=== PATIENT | female | born 1980 | race Two or more races ===

== ENCOUNTER 2020-12-05 15:47 | Outpatient (REF) | payer MEDICARE, MEDICAID, SELFPAY ==
[2020-12-05 16:59] LABS: MANUAL DIFF FLAG NO
[2020-12-05 17:02] LABS: Basophils Percent Auto 0.3 % (0-2); Eosinophils Absolute Auto 0.1 X10*3/uL (0.0-0.4); Eosinophils Percent Auto 0.9 % (0-4); Hematocrit 37.4 % (37-47); Hemoglobin 11.8 g/dl (12.0-16.0); Imm Gran Abs Auto 0.02 X10*3/uL (0.00-0.03); Imm Gran Pct Auto 0.3 % (0.0-0.4); Lymphocytes Absolute Auto 2.9 X10*3/uL (1.2-4.9); Lymphocytes Percent Auto 37.6 % (20-40); Mean Corpuscular HGB Conc 31.6 g/dl (31.0-35.0); Mean Corpuscular Hemoglobin 26.2 pg (27.0-33.0); Mean Corpuscular Volume 83.1 fL (80-98); Mean Platelet Volume 9.7 fL (9.4-12.3); Monocytes Absolute Auto 0.6 X10*3/uL (0.1-1.2); Monocytes Percent Auto 8.1 % (2-11); Neutrophils Percent Auto 52.8 % (45-73); Platelet Count 389 X10*3/uL (160-400); White Blood Count 7.6 X10*3/uL (4.8-10.8)
[2020-12-05 17:25] LABS: Alanine Aminotransferase 14 U/L (0-31); Alkaline Phosphatase 69 U/L (39-117); Anion Gap 12 (12-20); Aspartate Amino Transferase 14 U/L (5-31); Bilirubin Total 0.2 mg/dL (0.0-1.0); Blood Urea Nitrogen 16 mg/dL (9-16); Calcium 9.6 mg/dL (8.4-10.2); Carbon Dioxide 26 mmol/L (22-29); Chloride 104 mmol/L (96-108); Estimated Glomerular Filt Rate > 60; Glucose Random 73 mg/dL (60-115); Potassium 4.2 mmol/L (3.3-5.1); Sodium 138 mmol/L (135-145); Total Protein 7.2 g/dL (6.5-8.0)
[2020-12-05 17:48] LABS: TSH reflex Free T4 0.64 uIU/mL (0.32-4.0)
[2020-12-09 13:27] LABS: Vitamin D 25-OH, D2 <4 ng/mL; Vitamin D 25-OH, D3 23 ng/mL; Vitamin D 25-OH, Total 23 ng/mL (30-100)
== END 2020-12-05 15:48 | disposition home or self-care (01) ==
LOC: HO.LAB 15:47
PROVIDERS: PCP Internal Medicine; Visit Provider Internal Medicine
DX: M79.672 Pain in left foot (principal); M79.671 Pain in right foot; M25.511 Pain in right shoulder; M19.90 Unspecified osteoarthritis, unspecified site
CPT/HCPCS: 36415; 80053; 82306; 84443; 85025

== ENCOUNTER 2020-12-06 13:37 | Outpatient (REF) | payer MEDICARE, MEDICAID, SELFPAY ==
--- NOTE | ~2020-12-06 | XR_ITS ---
EXAMINATION: XR FOOT, RIGHT CLINICAL INFORMATION: Pain. COMPARISON: None TECHNIQUE: AP, lateral, and oblique views of the right foot. FINDINGS: The bones and soft tissues are normal. No fracture. Alignment is anatomic. Boehler's angle is normal. There is no right ankle joint effusion. There are small posterior and plantar calcaneal spurs. Joint spaces are maintained. XR/XR foot RT min 3V IMPRESSION: 1. No fracture, dislocation or right ankle joint effusion is seen. 2. There are small calcaneal spurs. EXAMINATION: XR FOOT, LEFT CLINICAL INFORMATION: Pain. COMPARISON: None TECHNIQUE: AP, lateral, and oblique views of the left foot. FINDINGS: The bones and soft tissues are normal. No fracture. Alignment is anatomic. Boehler's angle is normal. There is no left ankle joint effusion. There are small posterior plantar calcaneal spurs. Joint spaces are maintained. IMPRESSION: 1. No fracture, dislocation or left ankle joint effusion is seen. 2. There are small calcaneal spurs.
--- NOTE | ~2020-12-06 | XR_ITS ---
EXAMINATION: XR FOOT, RIGHT CLINICAL INFORMATION: Pain. COMPARISON: None TECHNIQUE: AP, lateral, and oblique views of the right foot. FINDINGS: The bones and soft tissues are normal. No fracture. Alignment is anatomic. Boehler's angle is normal. There is no right ankle joint effusion. There are small posterior and plantar calcaneal spurs. Joint spaces are maintained. XR/XR foot LT min 3V IMPRESSION: 1. No fracture, dislocation or right ankle joint effusion is seen. 2. There are small calcaneal spurs. EXAMINATION: XR FOOT, LEFT CLINICAL INFORMATION: Pain. COMPARISON: None TECHNIQUE: AP, lateral, and oblique views of the left foot. FINDINGS: The bones and soft tissues are normal. No fracture. Alignment is anatomic. Boehler's angle is normal. There is no left ankle joint effusion. There are small posterior plantar calcaneal spurs. Joint spaces are maintained. IMPRESSION: 1. No fracture, dislocation or left ankle joint effusion is seen. 2. There are small calcaneal spurs.
== END 2020-12-06 13:38 | disposition home or self-care (01) ==
LOC: HO.XRAY 13:37
PROVIDERS: PCP Internal Medicine; Visit Provider Internal Medicine
DX: M79.671 Pain in right foot (principal); M79.672 Pain in left foot
CPT/HCPCS: 73630

== ENCOUNTER 2020-12-19 08:42 | Outpatient (REF) | payer MEDICARE, MEDICAID, SELFPAY ==
--- NOTE | ~2020-12-19 | XR_ITS ---
EXAMINATION: XR SHOULDER, RIGHT CLINICAL INFORMATION: Right shoulder pain COMPARISON: 08/05/2017 TECHNIQUE: Three views of the right shoulder. FINDINGS: The bones and soft tissues are normal. No fracture. Glenohumeral and acromioclavicular alignment is anatomic with normal joint space. No abnormal soft tissue calcifications. XR/XR shoulder RT min 2V IMPRESSION: Normal right shoulder.
== END 2020-12-19 08:43 | disposition home or self-care (01) ==
LOC: HO.HOSX 08:42
PROVIDERS: Visit Provider Orthopaedic Surgery
DX: M25.511 Pain in right shoulder (principal); M79.18 Myalgia, other site
CPT/HCPCS: 73030; 99212

== ENCOUNTER → 2021-01-10 14:34 | Outpatient (BNVA) | payer MEDICARE, MEDICAID, SELFPAY | PROVIDERS: PCP Internal Medicine; Visit Provider Nurse Practitioner Family | DX: M54.2 Cervicalgia (principal); M25.511 Pain in right shoulder; M79.18 Myalgia, other site | CPT/HCPCS: 99202 ==

== ENCOUNTER 2021-02-07 13:47 | Outpatient (REF) | payer MEDICARE, MEDICAID, SELFPAY ==
--- NOTE | ~2021-02-07 | XR_ITS ---
EXAMINATION: XR CERVICAL SPINE CLINICAL INFORMATION: Neck pain. COMPARISON: None TECHNIQUE: 5 views of the cervical spine were obtained. FINDINGS: There is mild straightening of cervical lordosis. The vertebral heights and alignment is normal. There is mild loss of C5-C6 disc identified. Moderate ventral spondylosis. Rest of the skeleton normal. The neural foramina patent. No visible acute fracture or dislocation seen. The craniovertebral junction and the C1-C2 alignment is normal. XR/XR cervical spine 3V IMPRESSION: There is mild straightening of cervical lordosis. There is loss of C5-C6 disc height with moderate ventral spondylosis. There is no acute fracture, dislocation or lytic process.
== END 2021-02-07 13:48 | disposition home or self-care (01) ==
LOC: HO.XRAY 13:47
PROVIDERS: PCP Internal Medicine; Visit Provider Nurse Practitioner Family
DX: M54.2 Cervicalgia (principal)
CPT/HCPCS: 72040

== ENCOUNTER 2021-05-22 13:28 | Outpatient (REF) | payer MEDICARE, MEDICAID, SELFPAY ==
[2021-05-23 11:06] LABS: CT PCR NOT DETECTED (Not Detect.); NG PCR NOT DETECTED (Not Detect.)
[2021-05-24 10:53] LABS: BV Int Neg Control Negative (Negative); BV Int Pos Control Positive (Positive)
[2021-05-29 15:01] LABS: HPV mRNA E6/E7 rflx Not Detected (Not Detected)
== END 2021-05-22 13:29 | disposition home or self-care (01) ==
LOC: HO.LAB 13:28
PROVIDERS: PCP Internal Medicine; Visit Provider Advanced Practice Midwife
DX: Z01.411 Encounter for gynecological examination (general) (routine) with abnormal findings (principal); Z11.3 Encounter for screening for infections with a predominantly sexual mode of transmission; R10.2 Pelvic and perineal pain; N92.0 Excessive and frequent menstruation with regular cycle
CPT/HCPCS: 87480; 87491; 87510; 87591; 87624; 87660; 88142; 99212

== ENCOUNTER 2021-06-01 13:16 | Outpatient (REF) | payer MEDICARE, MEDICAID, SELFPAY ==
[2021-06-01 14:05] LABS: Hematocrit 35.7 % (37.0-47.0); Hemoglobin 11.6 g/dl (12.0-16.0); Mean Corpuscular HGB Conc 32.5 g/dl (31.0-35.0); Mean Corpuscular Hemoglobin 26.5 pg (27.0-33.0); Mean Corpuscular Volume 81.5 fL (80.0-98.0); Mean Platelet Volume 9.3 fL (9.4-12.3); Platelet Count 365 X10*3/uL (160-400); Red Blood Count 4.38 X10*6/uL (4.20-5.50); Red Cell Distribution Width 15.4 % (11.0-16.0)
[2021-06-01 14:52] LABS: Thyroid Stimulating Hormone 0.55 uIU/mL (0.32-4.0)
== END 2021-06-01 13:17 | disposition home or self-care (01) ==
LOC: HO.LAB 13:16
PROVIDERS: PCP Internal Medicine; Visit Provider Advanced Practice Midwife
DX: N92.0 Excessive and frequent menstruation with regular cycle (principal); N92.1 Excessive and frequent menstruation with irregular cycle
CPT/HCPCS: 36415; 84443; 85027

== ENCOUNTER 2021-06-05 13:53 | Outpatient (REF) | payer MEDICARE, MEDICAID, SELFPAY ==
--- NOTE | ~2021-06-05 | US_ITS ---
EXAMINATION: US PELVIS CLINICAL INFORMATION: AUB. COMPARISON: None. TECHNIQUE: Ultrasound of the pelvis is performed using both transabdominal and transvaginal transducers along with Doppler. Transvaginal imaging is performed due to inadequate visualization transabdominally. FINDINGS: Uterus: The uterus is anteverted and measures 11.6 cm and length, 5.5 cm in AP and 7.0 cm in transverse dimension. cm. There are 2 hypoechoic lesions. The lesion in the right fundus measures 1.4 x 1.7 x 1.5 cm. Lesion in the left upper body of uterus measures 1.0 x 0.9 x 1.0 cm. The uterus is heterogeneous. There are small nabothian cysts seen in the cervix. The double wall endometrial thickness is 1.2 mm. Adnexa: Both ovaries are visualized. There is normal color flow to the adnexa. There is no ovarian torsion. There is no pelvic ascites or fluid collection. Right ovary measures 2.7 x 1.3 x 2.0 cm and volume 3.7 mL. Previously it measured 2.8 x 2.0 x 1.7 cm and volume 6.5 mL. Left ovary measures 2.2 x 1.6 x 1.3 cm and volume 2.4 mL. Previously it measured 2.1 x 3.0 x 2.5 cm and volume 7.7 mL. US/US pelvic and transvaginal IMPRESSION: Heterogeneous uterus with 2 uterine fibroids as described above. Small nabothian cysts in the cervix. Unremarkable ovaries.
== END 2021-06-05 13:54 | disposition home or self-care (01) ==
LOC: HO.US 13:53
PROVIDERS: PCP Internal Medicine; Visit Provider Advanced Practice Midwife
DX: N92.0 Excessive and frequent menstruation with regular cycle (principal); R10.2 Pelvic and perineal pain
CPT/HCPCS: 76830; 76856

== ENCOUNTER 2021-06-22 13:21 | Outpatient (REF) | payer MEDICARE, MEDICAID, SELFPAY ==
--- NOTE | ~2021-06-22 | MM_ITS ---
EXAMINATION: MM SCREENING DIGITAL BREAST TOMOSYNTHESIS, BILATERAL CLINICAL INFORMATION: Screening. Asymptomatic. No prior breast imaging. Age 41. No known family history breast cancer. The lifetime risk of breast cancer based on the Tyrer-Cuzick Model is 7%. COMPARISON: None (current study represents initial baseline exam). TECHNIQUE: Digital breast tomosynthesis is performed in both the craniocaudal and mediolateral oblique views along with computer-aided detection (CAD). Synthesized 2D images are generated from the tomosynthesis. FINDINGS: There are scattered areas of fibroglandular density (ACR BI-RADS breast composition Category b). There are no significant masses, abnormal calcifications, or other abnormalities. The axilla and skin contours are unremarkable. MM/MM tomosynthesis screening BI IMPRESSION: No mammographic evidence of malignancy. ASSESSMENT: BI-RADS 1: Negative RECOMMENDATION: Routine annual mammography screening. This patient's information was entered into a reminder system with a target due date for their next mammogram.
== END 2021-06-22 13:22 | disposition home or self-care (01) ==
LOC: HO.MAMMO 13:21
PROVIDERS: Visit Provider Internal Medicine
DX: Z12.31 Encounter for screening mammogram for malignant neoplasm of breast (principal)
CPT/HCPCS: 77063; 77067

== ENCOUNTER 2021-06-26 13:02 | Outpatient (REF) | payer MEDICARE, MEDICAID, SELFPAY | END 2021-06-26 13:03 | disposition home or self-care (01) | LOC: HO.LAB 13:02 | PROVIDERS: PCP Internal Medicine; Visit Provider Advanced Practice Midwife | DX: N93.9 Abnormal uterine and vaginal bleeding, unspecified (principal); N92.0 Excessive and frequent menstruation with regular cycle | CPT/HCPCS: 58100; 88305 ==

== ENCOUNTER 2021-12-04 10:26 | Outpatient (REF) | payer MEDICARE, MEDICAID, SELFPAY ==
[2021-12-04 10:47] LABS: MANUAL DIFF FLAG NO
[2021-12-04 12:05] LABS: Eosinophils Absolute Auto 0.1 X10*3/uL (0.0-0.4); Eosinophils Percent Auto 0.9 % (0-4); Hematocrit 37.8 % (37.0-47.0); Hemoglobin 11.8 g/dl (12.0-16.0); Imm Gran Abs Auto 0.02 X10*3/uL (0.00-0.03); Imm Gran Pct Auto 0.4 % (0.0-0.4); Lymphocytes Absolute Auto 1.9 X10*3/uL (1.2-4.9); Lymphocytes Percent Auto 33.9 % (20-40); Mean Corpuscular HGB Conc 31.2 g/dl (31.0-35.0); Mean Corpuscular Volume 83.3 fL (80.0-98.0); Mean Platelet Volume 9.5 fL (9.4-12.3); Monocytes Absolute Auto 0.4 X10*3/uL (0.1-1.2); Monocytes Percent Auto 7.8 % (2-11); Neutrophils Absolute Auto 3.2 x10*3/uL (2.0-8.3); Platelet Count 392 X10*3/uL (160-400); Red Blood Count 4.54 X10*6/uL (4.20-5.50); Red Cell Distribution Width 15.5 % (11.0-16.0); White Blood Count 5.7 X10*3/uL (4.8-10.8)
[2021-12-04 12:30] LABS: Alanine Aminotransferase 10 U/L (0-31); Albumin Level 3.9 g/dL (3.5-5.0); Alkaline Phosphatase 69 U/L (39-117); Anion Gap 13 (12-20); Aspartate Amino Transferase 13 U/L (5-31); Bilirubin Total 0.5 mg/dL (0.0-1.0); Blood Urea Nitrogen 14 mg/dL (9-16); Calcium 9.1 mg/dL (8.4-10.2); Carbon Dioxide 26 mmol/L (22-29); Chloride 106 mmol/L (96-108); Cholesterol 139 mg/dL; Estimated Glomerular Filt Rate > 60; Glucose Fasting 85 mg/dL (60-99); HDL Cholesterol 44 mg/dL; LDL Cholesterol Calculated 81 mg/dl; Potassium 4.6 mmol/L (3.3-5.1); Sodium 140 mmol/L (135-145); Total Protein 7.1 g/dL (6.5-8.0); Triglycerides 71 mg/dL
[2021-12-04 12:50] LABS: TSH reflex Free T4 0.71 uIU/mL (0.32-4.0)
[2021-12-04 12:53] LABS: Vitamin B12 437 pg/mL (200-900)
[2021-12-07 17:56] LABS: Vitamin D 25-OH, D2 <4 ng/mL; Vitamin D 25-OH, D3 22 ng/mL; Vitamin D 25-OH, Total 22 ng/mL (30-100)
== END 2021-12-04 10:27 | disposition home or self-care (01) ==
LOC: HO.LAB 10:26
PROVIDERS: PCP Internal Medicine; Visit Provider Internal Medicine
DX: F33.9 Major depressive disorder, recurrent, unspecified (principal); M19.90 Unspecified osteoarthritis, unspecified site; M79.642 Pain in left hand; R53.83 Other fatigue; E55.9 Vitamin D deficiency, unspecified; E66.9 Obesity, unspecified; M54.9 Dorsalgia, unspecified
CPT/HCPCS: 36415; 80053; 80061; 82306; 82607; 84443; 85025

== ENCOUNTER 2022-05-08 13:43 | Outpatient (REF) | payer MEDICARE, MEDICAID, SELFPAY ==
[2022-05-08 14:01] LABS: MANUAL DIFF FLAG NO
[2022-05-08 14:38] LABS: Basophils Percent Auto 0.4 % (0-2); Eosinophils Absolute Auto 0.1 X10*3/uL (0.0-0.4); Eosinophils Percent Auto 1.4 % (0-4); Hemoglobin 11.3 g/dl (12.0-16.0); Imm Gran Abs Auto 0.01 X10*3/uL (0.00-0.03); Imm Gran Pct Auto 0.2 % (0.0-0.4); Lymphocytes Absolute Auto 1.8 X10*3/uL (1.2-4.9); Lymphocytes Percent Auto 35.7 % (20-40); Mean Corpuscular HGB Conc 33.2 g/dl (31.0-35.0); Mean Corpuscular Hemoglobin 27.6 pg (27.0-33.0); Mean Corpuscular Volume 83.1 fL (80.0-98.0); Mean Platelet Volume 9.2 fL (9.4-12.3); Monocytes Absolute Auto 0.3 X10*3/uL (0.1-1.2); Monocytes Percent Auto 6.9 % (2-11); Neutrophils Absolute Auto 2.8 x10*3/uL (2.0-8.3); Neutrophils Percent Auto 55.4 % (45-73); Platelet Count 354 X10*3/uL (160-400); Red Blood Count 4.09 X10*6/uL (4.20-5.50); Red Cell Distribution Width 15.9 % (11.0-16.0)
[2022-05-08 15:09] LABS: Alanine Aminotransferase 10 U/L (0-31); Alkaline Phosphatase 74 U/L (39-117); Anion Gap 14 (12-20); Aspartate Amino Transferase 15 U/L (5-31); Bilirubin Total < 0.2 mg/dL (0.0-1.0); Blood Urea Nitrogen 16 mg/dL (9-16); Calcium 9.7 mg/dL (8.4-10.2); Carbon Dioxide 27 mmol/L (22-29); Chloride 105 mmol/L (96-108); Estimated Glomerular Filt Rate > 60; Glucose Random 81 mg/dL (60-115); Potassium 4.7 mmol/L (3.3-5.1); Sodium 141 mmol/L (135-145)
[2022-05-08 15:25] LABS: TSH reflex Free T4 0.53 uIU/mL (0.32-4.0)
[2022-05-09 18:02] LABS: Thyroglobulin Antibodies <1 IU/mL (< or = 1)
== END 2022-05-08 13:44 | disposition home or self-care (01) ==
LOC: HO.LAB 13:43
PROVIDERS: PCP Internal Medicine; Visit Provider Internal Medicine
DX: E06.9 Thyroiditis, unspecified (principal); R13.10 Dysphagia, unspecified
CPT/HCPCS: 36415; 80053; 84443; 85025; 86800

== ENCOUNTER 2022-05-28 14:15 | Outpatient (REF) | payer MEDICARE, MEDICAID, SELFPAY ==
[2022-05-29 13:58] LABS: BV Int Neg Control Negative (Negative); BV Int Pos Control Positive (Positive)
[2022-05-29 15:15] LABS: CT PCR NOT DETECTED (Not Detect.); NG PCR NOT DETECTED (Not Detect.)
== END 2022-05-28 14:16 | disposition home or self-care (01) ==
LOC: HO.LNP 14:15
PROVIDERS: Visit Provider Advanced Practice Midwife
DX: Z11.3 Encounter for screening for infections with a predominantly sexual mode of transmission (principal); Z20.2 Contact with and (suspected) exposure to infections with a predominantly sexual mode of transmission
CPT/HCPCS: 87480; 87491; 87510; 87591; 87660

== ENCOUNTER → 2022-07-12 15:29 | Outpatient (BNVA) | payer MEDICARE, MEDICAID, SELFPAY | PROVIDERS: PCP Internal Medicine; Visit Provider Internal Medicine | DX: R13.10 Dysphagia, unspecified (principal); R10.9 Unspecified abdominal pain | CPT/HCPCS: 99202 ==

== ENCOUNTER 2022-08-06 13:17 | Outpatient (REF) | payer MEDICARE, MEDICAID, SELFPAY ==
--- NOTE | ~2022-08-06 | US_ITS ---
EXAMINATION: ULTRASOUND OF THE PELVIS CLINICAL INFORMATION: Pelvic and perineal pain. History of ovarian cysts.. COMPARISON: None. TECHNIQUE: Transabdominal and transvaginal pelvic ultrasound. A transvaginal study was performed in addition to the transabdominal study which did not yield an adequate examination of the uterus and ovaries due to superimposed distended gas-filled loops of bowel. FINDINGS: The uterus is normal in size and appearance, measuring 9.8 x 5.1 x 6.4 cm longitudinally, anteroposteriorly and transversely. The endometrial stripe thickness is irregular, measuring 0.8 cm in thickness. Within the endometrial canal there is suggestion of a focal polyp near the fundus. This measures 0.7 x 1.4 x 0.5 cm. There is a hyperechoic lesion at the uterine fundus, likely a fibroid. This measures 1.5 x 1.3 x 1.4 cm, similar to prior. Nabothian cysts noted at the cervix. The ovaries bilaterally are visualized, with the right ovary measuring 5 x 4.5 x 4.1 cm and the left ovary measuring 2.1 x 1.5 x 1.7 cm. There is a simple appearing cyst identified in the right ovary measuring 4.5 x 3.8 x 4.4 cm. Small left ovarian follicles noted. No adnexal mass or free fluid collection seen. US/US pelvic and transvaginal IMPRESSION: 1. Suggestion of a endometrial polyp near the fundus. This measures 0.7 x 1.4 x 0.5 cm. Further evaluation recommended. 2. Redemonstration of a fundal uterine fibroid. 3. Right ovarian cyst measuring up to 4.5 cm. This is likely physiologic. No specific follow-up imaging recommended.
== END 2022-08-06 13:18 | disposition home or self-care (01) ==
LOC: HO.US 13:17
PROVIDERS: PCP Internal Medicine; Visit Provider Advanced Practice Midwife
DX: R10.2 Pelvic and perineal pain (principal)
CPT/HCPCS: 76830; 76856

== ENCOUNTER 2022-08-08 14:58 | Outpatient (REF) | payer MEDICARE, MEDICAID, SELFPAY | END 2022-08-08 14:59 | disposition home or self-care (01) | LOC: HO.US 14:58 | PROVIDERS: PCP Internal Medicine; Visit Provider Internal Medicine | DX: Z13.89 Encounter for screening for other disorder (principal) ==

== ENCOUNTER → 2022-08-26 10:02 | Outpatient (BNVA) | payer MEDICARE, MEDICAID, SELFPAY | PROVIDERS: PCP Internal Medicine; Visit Provider Advanced Practice Midwife | DX: Z71.2 Person consulting for explanation of examination or test findings (principal); N84.0 Polyp of corpus uteri; N83.201 Unspecified ovarian cyst, right side | CPT/HCPCS: 99212 ==

== ENCOUNTER 2022-08-27 13:33 | Outpatient (REF) | payer MEDICARE, MEDICAID, SELFPAY | END 2022-08-27 13:34 | disposition home or self-care (01) | LOC: HO.US 13:33 | PROVIDERS: Visit Provider Internal Medicine | DX: Z13.89 Encounter for screening for other disorder (principal) ==

== ENCOUNTER 2022-08-28 09:27 | Outpatient (REF) | payer MEDICARE, MEDICAID, SELFPAY ==
--- NOTE | ~2022-08-28 | US_ITS ---
EXAMINATION: US ABDOMEN COMPLETE CLINICAL INFORMATION: Unspecified abdominal pain. COMPARISON: None TECHNIQUE: Real-time imaging of the abdominal viscera. FINDINGS: PANCREAS: The visualized portions of the pancreas are unremarkable but a large portion of the gland is obscured by bowel gas. ABDOMINAL AORTA: The proximal, mid, and distal segments are normal in caliber. INFERIOR VENA CAVA: Visualized portions are normal. LIVER: The liver is normal in size. The liver contour is normal. There is diffuse increased liver parenchymal echogenicity, consistent with hepatic steatosis. No focal hepatic lesion. There is no intrahepatic biliary duct dilatation seen. GALLBLADDER: The gallbladder is physiologically distended without evidence of stones, sludge, polyps, wall thickening or pericholecystic fluid. COMMON BILE DUCT: Normal in caliber measuring 0.2 cm in diameter. RIGHT KIDNEY: No hydronephrosis. No renal calculi or focal parenchymal lesions. The kidney measures 8.4 cm in maximum dimension. LEFT KIDNEY: No hydronephrosis. No renal calculi or focal parenchymal lesions. The kidney measures 10.0 cm in maximum dimension. SPLEEN: Normal. The spleen measures 8.9 cm in maximum dimension. FREE FLUID: None. US/US abdomen complete IMPRESSION: Hepatic steatosis.
--- NOTE | ~2022-08-28 | FL_ITS ---
EXAMINATION: FL BARIUM SWALLOW CLINICAL INFORMATION: Dysphagia COMPARISON: None TECHNIQUE: Barium swallow examination is performed using fluoroscopic evaluation in addition to multiple fluoroscopic spot views. The patient is imaged both upright and prone and using both thick and thin sulfate along with effervescent granules. Exam is limited as the patient was nauseous and vomiting. Tablet was not administered. Fluoroscopy time: 0.5 minutes DAP: 3 Gycm2 Images: 27 FINDINGS: The swallowing mechanism is normal. No aspiration or penetration. Esophageal motility is normal. No hernia. No reflux. No mass or stricture. FL/FL barium swallow IMPRESSION: Limited but unremarkable exam. Patient was nauseous and vomited. Barium tablet not administered.
== END 2022-08-28 09:28 | disposition home or self-care (01) ==
LOC: HO.XRAY 09:27
PROVIDERS: PCP Internal Medicine; Visit Provider Internal Medicine
DX: R13.10 Dysphagia, unspecified (principal); R10.9 Unspecified abdominal pain
CPT/HCPCS: 74220; 76700

== ENCOUNTER 2022-09-19 06:33 | Day surgery (SDC) | payer MEDICARE, MEDICAID, SELFPAY ==
[2022-09-16 11:49] VITALS: BMI 36.3
--- NOTE | 2022-09-18 13:07 | HO.ANESPROP2 ---
Documented by User: Amparo Smith NP 09/18/22 13:08 HPI - Anesthesia Eval Consult details Narrative: 42yo F for Upper Endoscopy PMFSH Active Problems Active Problems: All Active Problems (Updated 07/12/22 @ 15:42 by Leigh Blakely MD) Abdominal pain (Acute) Painful swallowing (Acute) Difficulty swallowing (Acute) Thyroiditis (Acute) Obesity due to excess calories (Acute) Anemia (Acute) Nasal congestion (Acute) Chronic back pain (Acute) Tired (Acute) Arthrosis (Acute) Major depression, recurrent (Acute) Hand pain, left (Acute) Upper respiratory tract infection (Acute) Abnormal uterine bleeding (AUB) (Acute) Pelvic pain in female (Acute) Heavy menstrual bleeding (Acute) Encounter for routine gynecological examination (Acute) Encounter for general adult medical examination with abnormal findings (Acute) Breast screening (Acute) Lump on neck (Acute) Past Medical History Medical History Arthrosis Cervicalgia Foot pain, bilateral History of ovarian cyst Major depression, recurrent Myofascial pain Obesity due to excess calories Paresthesia of hand, bilateral Plantar wart of right foot Shoulder pain, right Viral syndrome Vitamin D deficiency Family History Family History Father HTN (hypertension) Depression Mother Depression Maternal Grandmother No problems noted. Maternal Grandfather No problems noted. Paternal Grandfather No problems noted. Paternal Grandmother No problems noted. Sister No problems noted. Sister No problems noted. Daughter No problems noted. Daughter No problems noted. Daughter No problems noted. Other Mental health disorder Surgical History Surgical History History of esophagogastroduodenoscopy (EGD) History of loop electrical excision procedure (LEEP) History of tubal ligation History of wisdom tooth extraction Social History Social History Housing: Apartment Alcohol intake: never Patient Tobacco Use Status: Never used Tobacco e-Cigarette/Vaping Use: Never Used Second Hand Smoke Exposure: No Are you DNR?: No Advance Directives: No Advance Directives Information Provided: Yes Patient : No Current occupational status: disabled Current occupation: right handed/ Cognitive needs: No Hearing needs: No Vision needs: Yes Meds Allergies Allergy/AdvReac Type Severity Reaction Status Date / Time No Known Allergies Allergy Verified 08/26/22 10:05 Home Medications Medication Instructions Recorded Confirmed Last Taken Type albuterol sulfate 90 mcg/actuation inhalation 09/19/22 09/11/22 History aerosol inhaler citalopram 10 mg tablet 1 tab PO DAILY 09/19/22 09/19/22 09/18/22 History fluticasone propionate 50 spray intranasal 09/19/22 09/11/22 History mcg/actuation nasal spray,suspension pantoprazole 40 mg tablet,delayed 1 tab PO DAILY 09/19/22 09/19/22 09/11/22 History release Exam Exam Date and Time: September 18, 2022 1307 Height,Weight and Vital Signs: Height 4 ft 9 in Weight 76.204 kg Pertinent Lab Results Pertinent Lab Results: Laboratory Tests 05/08/22 05/08/22 14:00 14:00 WBC 5.0 Hgb 11.3 L Hct 34.0 L Plt Count 354 Sodium 141 Potassium 4.7 Chloride 105 Carbon Dioxide 27 BUN 16 Creatinine 0.85 Assessment and Plan Assessment Anesthesia Assessment: Chart Reviewed Documented by User: Hannah Mcarthur MD 09/19/22 07:16 [facility] Past Medical History Medical History Arthrosis Cervicalgia Foot pain, bilateral History of ovarian cyst Major depression, recurrent Myofascial pain Obesity due to excess calories Paresthesia of hand, bilateral Plantar wart of right foot Shoulder pain, right Viral syndrome Vitamin D deficiency Family History Family History Father HTN (hypertension) Depression Mother Depression Maternal Grandmother No problems noted. Maternal Grandfather No problems noted. Paternal Grandfather No problems noted. Paternal Grandmother No problems noted. Sister No problems noted. Sister No problems noted. Daughter No problems noted. Daughter No problems noted. Daughter No problems noted. Other Mental health disorder Family history of problems with anesthesia: No Surgical History Surgical History History of esophagogastroduodenoscopy (EGD) History of loop electrical excision procedure (LEEP) History of tubal ligation History of wisdom tooth extraction History of Problems with Anesthesia: No Social History Social History Housing: Apartment Alcohol intake: never Patient Tobacco Use Status: Never used Tobacco e-Cigarette/Vaping Use: Never Used Second Hand Smoke Exposure: No Are you DNR?: No Advance Directives: No Advance Directives Information Provided: Yes Patient : No Current occupational status: disabled Current occupation: right handed/ Cognitive needs: No Hearing needs: No Vision needs: Yes Meds Allergies Allergy/AdvReac Type Severity Reaction Status Date / Time No Known Allergies Allergy Verified 08/26/22 10:05 Home Medications Medication Instructions Recorded Confirmed Last Taken Type albuterol sulfate 90 mcg/actuation inhalation 09/19/22 09/11/22 History aerosol inhaler citalopram 10 mg tablet 1 tab PO DAILY 09/19/22 09/19/22 09/18/22 History fluticasone propionate 50 spray intranasal 09/19/22 09/11/22 History mcg/actuation nasal spray,suspension pantoprazole 40 mg tablet,delayed 1 tab PO DAILY 09/19/22 09/19/22 09/11/22 History release Exam Airway Mallampati Class: II TM Dist: >3cm Neck ROM: Full Heart: RRR Lungs: CTA Assessment and Plan Final Anesthetic Review Family History of Problems with Anesthesia: No History of Problems with Anesthesia: No NPO: Yes ASA Class: II Final Preanesthetic Review: No Changes in Pt Med Stat, Meds/Allgs Chart Reviewed, Consent Obtained/Reviewed and Anes Risks/Benef Reviewed Patient Risk: Low Procedure Risk: Low Anesthetic Plan Anesthetic Plan: MAC: Disposition: Standard PACU
[2022-09-19] VITALS (7 sets, daily range): BP systolic 115–143; BP diastolic 52–84; PULSE 98–130; RESP 16–18; TEMP 36.1–36.8; O2SAT 96–100
[2022-09-19] MEDS: Lactated Ringers 1,000 ML 100 ML IVCONT (06:56)
--- NOTE | 2022-09-19 07:35 | MHC.SHP ---
Pre-Procedural Eval Section A Date of Service: 09/19/22 Section B Chief Complaint: abdominal pain,nausea,vomiting, Details of Present Illness: PMH: Arthrosis Cervicalgia Foot pain, bilateral History of ovarian cyst Major depression, recurrent Myofascial pain Obesity due to excess calories Paresthesia of hand, bilateral Plantar wart of right foot Shoulder pain, right Viral syndrome Vitamin D deficiency Surgical History History of esophagogastroduodenoscopy (EGD) History of loop electrical excision procedure (LEEP) History of tubal ligation History of wisdom tooth extraction Relevant Social History: None Present Medications: see Short Stay Collaborative assessment Allergies: Allergies Allergy/AdvReac Type Severity Reaction Status Date / Time No Known Allergies Allergy Verified 08/26/22 10:05 Review of Systems Review of Systems Comment: Ten point ROS negative except as above Exam Exam Comment: Gen appear: No acute distress HEENT: no icterus Chest: No overt resp distress Abd: soft, nontender, nondistended Psych: Stable affect, answering questions appropriately Neuro: A/Ox3 noted to move all extremities spontaneously Ext: no peripheral edema Plan Diagnosis/Plan: Unchanged I have reviewed the history and physical and performed a pertinent physical examination on my patient. No changes have occurred unless specified. Time Spent With Patient Time: Total time managing care of this patient today ____ minutes.
--- NOTE | 2022-09-19 07:36 | P.OP_ITS ---
Operative Note Operative Note Date of Service: 09/19/22 Narrative: Procedure: Esophagogastroduodenoscopy Endoscopist: Leigh Blakely MD Indication: Abd pain Anesthesia Provider: Dr Hannah Schumacher Anesthesia Type: MAC ?? EGD Procedure:?? The procedure, indications, preparation and potential complications were reviewed with the patient, who indicated understanding and gave written informed consent to proceed. A physical exam was performed. The endoscope was introduced through the mouth, and advanced to the second part of duodenum. The mucosa was carefully examined on slow withdrawal of the endoscope. The patient tolerated the procedure well. There were no immediate complications.? ? EGD Findings:? * Esophagus:? A few erosions measuring 5 mm but not crossing over the tops of mucosal folds were noted in the lower esophagus. The Z line was at 30 cm. Diaphragmatic hiatus was at 32 cm. Llower esophagus cold forceps biopsies were obtained. * Stomach:? Normal mucosa was noted in the stomach. Retroflexion of the cardia confirmed size and morphology of the hiatal hernia as Hill grade II. Random gastric biopsies were taken to rule out H Pylori infection. * Duodenum:? Erythema and erosions were noted in the duodenal bulb. Normal mucosa was noted in the remaining examined duodenum. Biopsies were taken from duodenal bulb and second portion of the duodenum to rule out celiac sprue. ? EGD Impressions:? * Grade B esophagitis (biopsy) * Hiatal hernia * Normal stomach (biopsy) * Bulbar duodenitis (biopsy) ?? Recommendations:?? * Follow biopsy results. Our office will call or send a letter with results within 7-10 days. * Resume PPI therapy. * If H pylori +, patient will be prescribed eradication therapy followed by test of cure. * Avoid NSAIDs. Above has been reviewed with the patient. Relevant educational hand outs were provided at discharge. ?
[2022-09-19] MEDS: Racepinephrine HCL 0.5 ML VIAL.NEB INHALE (08:32)
--- NOTE | 2022-09-19 13:30 | HO.POSTANES ---
Post Anesthesia Evaluation Post Anesthesia Evaluation Vital Signs: Vital Signs Temp Pulse Resp BP Pulse Ox O2 Del Method O2 Flow Rate 09/19/22 08:52 97.7 F 103 H 17 117/75 98 Room Air 09/19/22 08:37 97.7 F 101 H 16 129/84 98 Room Air 09/19/22 08:35 104 H 18 09/19/22 08:22 113 H 17 115/77 100 Nasal Cannula with ETCO2 2 09/19/22 08:12 130 H 16 143/70 H 100 Nasal Cannula with ETCO2 2 09/19/22 08:07 97.0 F 118 H 16 126/52 L 96 Simple Mask 6 09/19/22 06:35 98.3 F 98 18 127/71 99 Room Air Anesthesia: Monitored Mental Status: Awake (J) Pain Control: Satisfactory Nausea/Vomiting: None Hydration: Adequate Anesthesia-Related Issues: No Anes. Related Issues
== END 2022-09-19 09:26 | disposition home or self-care (01) ==
PROVIDERS: PCP Internal Medicine; Visit Provider Internal Medicine
PROC: 0DJ08ZZ Inspection of Upper Intestinal Tract, Via Natural or Artificial Opening Endoscopic (ICD-10-PCS; CPT 43235; principal; 2022-09-19 07:30)
DX: R10.9 Unspecified abdominal pain (principal); R11.0 Nausea; K20.80 Other esophagitis without bleeding; K29.80 Duodenitis without bleeding; K44.9 Diaphragmatic hernia without obstruction or gangrene; E55.9 Vitamin D deficiency, unspecified; M79.18 Myalgia, other site; B34.9 Viral infection, unspecified; E66.01 Morbid (severe) obesity due to excess calories; Z68.36 Body mass index [BMI] 36.0-36.9, adult; F33.9 Major depressive disorder, recurrent, unspecified; Z79.51 Long term (current) use of inhaled steroids; Z79.899 Other long term (current) drug therapy; Z98.51 Tubal ligation status
CPT/HCPCS: 43239; 88305; 88342

== ENCOUNTER 2022-09-27 14:06 | Outpatient (REF) | payer MEDICARE, MEDICAID, SELFPAY ==
[2022-09-27 16:41] LABS: Alanine Aminotransferase 11 U/L (0-31); Albumin Level 3.6 g/dL (3.5-5.0); Alkaline Phosphatase 70 U/L (39-117); Aspartate Amino Transferase 15 U/L (5-31); Bilirubin Direct < 0.2 mg/dL (0.0-0.5); Bilirubin Total 0.2 mg/dL (0.0-1.0); Total Protein 6.5 g/dL (6.5-8.0)
== END 2022-09-27 14:07 | disposition home or self-care (01) ==
LOC: HO.LAB 14:06
PROVIDERS: PCP Internal Medicine; Visit Provider Internal Medicine
DX: K80.50 Calculus of bile duct without cholangitis or cholecystitis without obstruction (principal); K20.90 Esophagitis, unspecified without bleeding; R13.10 Dysphagia, unspecified; R10.9 Unspecified abdominal pain
CPT/HCPCS: 36415; 80076; 99212

== ENCOUNTER → 2022-10-08 15:05 | Outpatient (BNVA) | payer MEDICARE, MEDICAID, SELFPAY | PROVIDERS: PCP Internal Medicine; Visit Provider Obstetrics & Gynecology | DX: N93.9 Abnormal uterine and vaginal bleeding, unspecified (principal) | CPT/HCPCS: 99212 ==

== ENCOUNTER 2022-11-29 07:34 | Day surgery (SDC) | payer MEDICARE, MEDICAID, SELFPAY ==
[2022-10-29 13:46] VITALS: BMI 34.9
--- NOTE | 2022-10-31 09:51 | HO.ANESPROP2 ---
Documented by User: Amparo Smith NP 11/07/22 14:25 HPI - Anesthesia Eval Consult details Narrative: 42yo F for D&C Hysteroscopy , possible polypectomy/ myomectomy, 11/29/22 s/p EGD 09/2022 with [facility] PMFSH Active Problems Active Problems: All Active Problems (Updated 10/11/22 @ 14:59 by Pavan Glass MD) Muscle spasm (Acute) Esophagitis determined by endoscopy (Acute) Biliary colic (Acute) Abdominal pain (Acute) Painful swallowing (Acute) Difficulty swallowing (Acute) Thyroiditis (Acute) Obesity due to excess calories (Acute) Anemia (Acute) Nasal congestion (Acute) Chronic back pain (Acute) Tired (Acute) Arthrosis (Acute) Major depression, recurrent (Acute) Hand pain, left (Acute) Upper respiratory tract infection (Acute) Abnormal uterine bleeding (AUB) (Acute) Pelvic pain in female (Acute) Heavy menstrual bleeding (Acute) Encounter for routine gynecological examination (Acute) Encounter for general adult medical examination with abnormal findings (Acute) Breast screening (Acute) Lump on neck (Acute) Past Medical History Medical History Arthrosis Asthma Back pain Cervicalgia Foot pain, bilateral GERD (gastroesophageal reflux disease) History of ovarian cyst Major depression, recurrent Migraine Myofascial pain Obesity due to excess calories Paresthesia of hand, bilateral Plantar wart of right foot Shoulder pain, right Viral syndrome Vitamin D deficiency Family History Family History Father HTN (hypertension) Depression Mother Depression Maternal Grandmother No problems noted. Maternal Grandfather No problems noted. Paternal Grandfather No problems noted. Paternal Grandmother No problems noted. Sister No problems noted. Sister No problems noted. Daughter No problems noted. Daughter No problems noted. Daughter No problems noted. Other Mental health disorder Family history of problems with anesthesia: No Surgical History Surgical History History of esophagogastroduodenoscopy (EGD) History of loop electrical excision procedure (LEEP) History of tubal ligation History of wisdom tooth extraction History of Problems with Anesthesia: No Social History Social History Housing: Apartment Alcohol intake: never Patient Tobacco Use Status: Never used Tobacco e-Cigarette/Vaping Use: Never Used Second Hand Smoke Exposure: No Use of substances other than those prescribed or required for medical reasons: No Are you DNR?: No Advance Directives: No Advance Directives Information Provided: Yes Advance Directives on File: No Recently lost weight without trying: No Nutrition Risks: No Nutritional Risk Patient : No Current occupational status: disabled Current occupation: right handed/ Cognitive needs: No Hearing needs: No Vision needs: Yes Meds Allergies Allergy/AdvReac Type Severity Reaction Status Date / Time No Known Allergies Allergy Verified 11/29/22 07:39 Home Medications Medication Instructions Recorded Confirmed Last Taken Type albuterol sulfate 90 mcg/actuation 1 puff inhalation Q4-6H PRN 09/19/22 11/29/22 09/11/22 History aerosol inhaler Shortness Of Breath Or Wheezing citalopram 10 mg tablet (Celexa) 1 tab PO DAILY 09/19/22 11/29/22 09/18/22 History fluticasone propionate 50 1 spray intranasal DAILY 09/19/22 11/29/22 09/11/22 History mcg/actuation nasal spray,suspension (Flonase Allergy Relief) acetaminophen 500 mg oral powder 1,000 mg PO Q6H PRN Pain 10/11/22 11/29/22 Unknown History packet (Tylenol Extra Strength) Exam Exam Date and Time: October 31, 2022 0951 Height,Weight and Vital Signs: Height 4 ft 10 in Weight 75.977 kg Assessment and Plan Assessment Anesthesia Assessment: Chart Reviewed Final Anesthetic Review Family History of Problems with Anesthesia: No History of Problems with Anesthesia: No Documented by User: Farooq Campuzano MD 11/29/22 08:41 PMFSH Past Medical History Medical History Arthrosis Asthma Back pain Cervicalgia Foot pain, bilateral GERD (gastroesophageal reflux disease) History of ovarian cyst Major depression, recurrent Migraine Myofascial pain Obesity due to excess calories Paresthesia of hand, bilateral Plantar wart of right foot Shoulder pain, right Viral syndrome Vitamin D deficiency Patient : No Family History Family History Father HTN (hypertension) Depression Mother Depression Maternal Grandmother No problems noted. Maternal Grandfather No problems noted. Paternal Grandfather No problems noted. Paternal Grandmother No problems noted. Sister No problems noted. Sister No problems noted. Daughter No problems noted. Daughter No problems noted. Daughter No problems noted. Other Mental health disorder Surgical History Surgical History History of esophagogastroduodenoscopy (EGD) History of loop electrical excision procedure (LEEP) History of tubal ligation History of wisdom tooth extraction Social History Social History Housing: Apartment Alcohol intake: never Patient Tobacco Use Status: Never used Tobacco e-Cigarette/Vaping Use: Never Used Second Hand Smoke Exposure: No Use of substances other than those prescribed or required for medical reasons: No Are you DNR?: No Advance Directives: No Advance Directives Information Provided: Yes Advance Directives on File: No Recently lost weight without trying: No Nutrition Risks: No Nutritional Risk Patient : No Current occupational status: disabled Current occupation: right handed/ Cognitive needs: No Hearing needs: No Vision needs: Yes Meds Allergies Allergy/AdvReac Type Severity Reaction Status Date / Time No Known Allergies Allergy Verified 11/29/22 07:39 Home Medications Medication Instructions Recorded Confirmed Last Taken Type albuterol sulfate 90 mcg/actuation 1 puff inhalation Q4-6H PRN 09/19/22 11/29/22 09/11/22 History aerosol inhaler Shortness Of Breath Or Wheezing citalopram 10 mg tablet (Celexa) 1 tab PO DAILY 09/19/22 11/29/22 09/18/22 History fluticasone propionate 50 1 spray intranasal DAILY 09/19/22 11/29/22 09/11/22 History mcg/actuation nasal spray,suspension (Flonase Allergy Relief) acetaminophen 500 mg oral powder 1,000 mg PO Q6H PRN Pain 10/11/22 11/29/22 Unknown History packet (Tylenol Extra Strength) Exam Airway Mallampati Class: II TM Dist: >3cm Neck ROM: Full Heart: ok Lungs: ok Assessment and Plan Assessment Anesthesia Assessment: Anesthesia Plan Discussed Final Anesthetic Review NPO: Yes ASA Class: II Final Preanesthetic Review: No Changes in Pt Med Stat, Meds/Allgs Chart Reviewed, Consent Obtained/Reviewed and Anes Risks/Benef Reviewed Patient Risk: Intermediate Procedure Risk: Low Anesthetic Plan Anesthetic Plan: GA and Agree w/ Assess. and Plan Disposition: Standard PACU
[2022-11-26 19:44] VITALS: BMI 35.5
[2022-11-29] VITALS (11 sets, daily range): BP systolic 102–122; BP diastolic 53–74; PULSE 68–92; RESP 12–20; TEMP 36.3–36.6; O2SAT 94–100
[2022-11-29 07:56] LABS: UPreg QC Valid YES; Urine Pregnancy NEGATIVE (NEGATIVE)
[2022-11-29] MEDS: Lactated Ringers 1,000 ML 100 ML IVCONT (08:01)
--- NOTE | 2022-11-29 09:37 | MHC.SHP ---
Pre-Procedural Eval Section A Date of Service: 11/29/22 The patient is an INPATIENT: No Changes since office visit: No Cold of Flu in the past 2 weeks, No New Medical Problems, No Changes in Medication and No Patient answered all questions The History & Physical has been completed within 30 days and I have reviewed it.: Yes Section B Chief Complaint: Abnormal uterine and vaginal bleeding, unspecified Allergies: Allergies Allergy/AdvReac Type Severity Reaction Status Date / Time No Known Allergies Allergy Verified 11/29/22 07:39 Plan Diagnosis/Plan: Unchanged I have reviewed the history and physical and performed a pertinent physical examination on my patient. No changes have occurred unless specified. Time Spent With Patient Time: Total time managing care of this patient today ____ minutes.
--- NOTE | 2022-11-29 09:37 | PM.OP ---
Brief Operative Note Date of Service: 11/29/22 Pre-op diagnosis: Abnormal uterine bleeding and Endometrial polyp by ultrasound Post-op diagnosis: same (Two endometrial polyps) Procedure: Hysteroscopy D&C, Polypectomy Surgeon: Damian Caldwell MD Anesthesia: GLMA Was an Cement Mason Apprentice used for this Procedure?: No Estimated blood loss (mL): 0 Pathology: other (Endometrial Scrapping. Polyp) Condition: stable Disposition: PACU
--- NOTE | 2022-11-29 09:38 | W.PM.OPN ---
Operative Note Operative Note Date of Service: 11/29/22 Narrative: Preop Diagnosis: Abnormal uterine bleeding and Endometrial polyp by US Operation: Diagnostic Hysteroscopy, Dilataion & Curettage and polypectomy Post Op Diagnosis: 2 Endometrial Polyps QBL: Minimal Anesthesia: GLMA Surgeon: Damian Caldwell MD Trestle Mainternance Laborer: None Complication: None Pathology: Endometrial Scrapings, Endometrial polyps Procedure: The patient was put in the dorsal lithotomy position, scrubbed, and draped in the usual manner. A sterile speculum was inserted in the patient's vagina. The anterior lip of the cervix was grasped with a single tooth tenaculum. The cervix was dilated up to 5 mm, then the scope was inserted in the patient's uterus. Inspection revealed 2 endometrial polyps. The Myosure Reach device was used; it was introduced through the operative channel and polypectomy done with no complications. The scope was then taken out from the uterine cavity, sharp curettings was carried on with minimal to moderate amount of tissues retrieved. At the end of the procedure, all instruments were taken out of the patient uterine and vaginal cavity. The single tooth tenaculum was removed and homeostasis was assured using pressure,. The patient tolerated the procedure well and was transferred to the PACU in a stable condition.
[2022-11-29] MEDS: Acetaminophen 325 MG TABLET 650 MG PO (10:17)
[2022-11-29] MEDS: oxyCODONE HCl Immed Release 5 MG TABLET PO (10:22)
[2022-11-29] MEDS: fentaNYL citrate/PF 100 MCG/2 ML VIAL 50 MCG IVPUSH (10:23)
== END 2022-11-29 11:40 | disposition home or self-care (01) ==
PROVIDERS: PCP Internal Medicine; Visit Provider Obstetrics & Gynecology
PROC: 0UDB8ZZ Extraction of Endometrium, Via Natural or Artificial Opening Endoscopic (ICD-10-PCS; CPT 58558; principal; 2022-11-29 09:00)
DX: N93.9 Abnormal uterine and vaginal bleeding, unspecified (principal); N84.0 Polyp of corpus uteri; Z98.51 Tubal ligation status; M19.90 Unspecified osteoarthritis, unspecified site; J45.909 Unspecified asthma, uncomplicated; E66.09 Other obesity due to excess calories; Z68.35 Body mass index [BMI] 35.0-35.9, adult; E55.9 Vitamin D deficiency, unspecified; B34.9 Viral infection, unspecified; K21.9 Gastro-esophageal reflux disease without esophagitis; M54.2 Cervicalgia; F33.9 Major depressive disorder, recurrent, unspecified; Z79.51 Long term (current) use of inhaled steroids; Z79.899 Other long term (current) drug therapy
CPT/HCPCS: 58558; 81025; 88305; J1100; J2250; J2405; J3010

== ENCOUNTER 2022-12-03 13:16 | Outpatient (REF) | payer MEDICARE, MEDICAID, SELFPAY ==
--- NOTE | ~2022-12-03 | MM_ITS ---
EXAMINATION: MM SCREENING DIGITAL BREAST TOMOSYNTHESIS, BILATERAL CLINICAL INFORMATION: Screening. Asymptomatic. The lifetime risk of breast cancer based on the Tyrer-Cuzick Model is 7.6%. COMPARISON: Mammography: June 22, 2021 TECHNIQUE: Digital breast tomosynthesis is performed in both the craniocaudal and mediolateral oblique views along with computer-aided detection (CAD). Synthesized 2D images are generated from the tomosynthesis. FINDINGS: The breasts are heterogeneously dense, which may obscure small masses (ACR BI-RADS breast composition Category c). There are no significant masses, abnormal calcifications, or other abnormalities. MM/MM tomosynthesis screening BI IMPRESSION: No significant changes from prior exam. ASSESSMENT: BI-RADS 1: Negative RECOMMENDATION: Routine annual mammography screening. This patient's information was entered into a reminder system with a target due date for their next mammogram.
== END 2022-12-03 13:17 | disposition home or self-care (01) ==
LOC: HO.MAMMO 13:16
PROVIDERS: PCP Internal Medicine; Visit Provider Obstetrics & Gynecology
DX: Z12.31 Encounter for screening mammogram for malignant neoplasm of breast (principal)
CPT/HCPCS: 77063; 77067

== ENCOUNTER → 2022-12-17 14:07 | Outpatient (BNVA) | payer MEDICARE, MEDICAID, SELFPAY | PROVIDERS: PCP Internal Medicine; Visit Provider Obstetrics & Gynecology | DX: N93.9 Abnormal uterine and vaginal bleeding, unspecified (principal); Z98.890 Other specified postprocedural states | CPT/HCPCS: 99212 ==

== ENCOUNTER 2023-09-24 14:32 | Outpatient (AMB) | payer MEDICARE, MEDICAID, SELFPAY ==
[2023-09-24 14:35] VITALS: BP 126/72; PULSE 82; O2SAT 98; BMI 35.5
--- NOTE | 2023-09-24 14:35 | AM.OFFVISMDC ---
Intake Vital Signs 09/24/23 14:35 Height 4 ft 10 in Weight 170 lb BMI 35.5 BP 126/72 Blood Pressure Location Rt brachial Position Sitting Pulse 82 Pulse Source Pulse Oximeter Pulse Oximetry (%) 98 Oxygen Delivery Method Room Air Intake Visit Reasons: AWV Allergies No Known Allergies Allergy (Verified 09/24/23 14:35) Medication List - Last Reconciled 09/24/23 by Pavan Glass MD acetaminophen (Tylenol Extra Strength) 1,000 mg PO Q6H PRN albuterol sulfate 90 mcg/actuation 1 puff inhalation Q4-6H PRN cyclobenzaprine 5 mg PO ONCE PRN 90 days HPI AWV HPI Details Patient back pain I have ordered x-ray for the patient She lives 1 hour away from here, she will look into the provider she want to see for her back At time she tells me that pain radiates to left hip There is no bowel or bladder issue Patient has also fallen twice in 1 year and she has fine hand tremors both sides I feel that she needs to be evaluated by Neurology HPI Comments History of Present Illness Details AWV Medical/social history reviewed Past medical history reviewed [place] of care / care team list updated Surgical/ hospitalization history reviewed Current medications including OTC and supplements reviewed Family history reviewed Tobacco controlled form updated Alcohol use form updated Illicit drug use in social history reviewed Current diagnosis of depression ?screening updated Appropriate PHQ 2/PHQ-9 completed . Vital signs reviewed Alcohol tobacco drug use reviewed and discussed . MMSE completed . ? Fall risk: ?Assessed Fall history: ?yes Have you had any falls with injury in the past year?? yes Have you had 2 or more falls in the past year?? yes Fall risk assessment completed Home safety discussed with the patient Functional ability assessed and discussed and documented Activities of daily living reviewed and appropriate actions taken . HRA filled out by the patient and reviewed by provider and scanned . Appropriate written screening schedule established . Any health advise needed provided . Advance care planning discussed with the patient , necessary paperwork filled Examination IPPE/AWE: Balance intact Romberg intact Tandem walk intact walk-in turn intact rise from sit to stand intact . ?Hearing ?whisper test pass . Medication list reviewed, patient is stable on medications All other providers patient is seeing discussed and noted . [facility] Medical History Back pain GERD (gastroesophageal reflux disease) Migraine Asthma History of ovarian cyst Paresthesia of hand, bilateral Plantar wart of right foot Major depression, recurrent Vitamin D deficiency Myofascial pain Cervicalgia Obesity due to excess calories Foot pain, bilateral Shoulder pain, right Arthrosis Viral syndrome Surgical History History of esophagogastroduodenoscopy (EGD) History of loop electrical excision procedure (LEEP) History of wisdom tooth extraction History of tubal ligation Family History Father HTN (hypertension) Depression Mother Depression Maternal Grandmother No problems noted. Maternal Grandfather No problems noted. Paternal Grandfather No problems noted. Paternal Grandmother No problems noted. Sister No problems noted. Sister No problems noted. Daughter No problems noted. Daughter No problems noted. Daughter No problems noted. Other Mental health disorder Social History Housing: Apartment Alcohol intake: never Patient Tobacco Use Status: Never used Tobacco e-Cigarette/Vaping Use: Never Used Second Hand Smoke Exposure: No Current occupational status: disabled Current occupation: right handed/ Cognitive needs: No Hearing needs: No Vision needs: Yes Female Reproductive History Menstrual Age of Menarche: 12 Questionnaire Medicare Wellness Checkup What gender do you identify with?: female During the past 4 weeks, how much have you been bothered by emotional problems such as feeling anxious, depressed, irritable, sad or downhearted, and blue?: moderately During the past 4 weeks, has your physical & emotional health limited your social activities with family, friends, neighbors, or groups?: quite a bit During the past 4 weeks, how much bodily pain have you generally had?: moderate pain During the past 4 weeks, was someone available to help you if you needed & wanted help?: yes, quite a bit During the past 4 weeks, what was the hardest physical activity you could do for at least 2 minutes?: very light Can you get to places out of walking distance without help? (For eg., can you travel alone on buses, taxis or drive your car?): Yes Can you go shopping for groceries or clothes without someone's help?: Yes Can you prepare your own meals?: Yes Can you do your housework without help?: Yes Because of any health problems, do you need the help of another person with your personal care needs such as eating, bathing, dressing or getting around the house?: No Can you handle your own money without help?: Yes During the past 4 weeks, how would you rate your health in general?: poor During the past 4 weeks how have things been going for you?: good & bad parts about equal Are you having difficulties driving your car?: no Do you always fasten your seat belt when you are in a car?: yes, usually During past 4 weeks, have you been bothered by the following: sometimes: Falling or dizzy when standing up, Sexual problems?, Trouble eating well?, Teeth or denture problems? and Problems using the telephone? and always: Tiredness or fatigue? Have you fallen 2 or more times in the past year?: Yes Are you afraid of falling?: No Are you a smoker?: no During the past 4 weeks, how many drinks of wine, beer, or other alcoholic beverages did you have?: no alcohol at all Do you exercise for about 20 minutes 3 or more times a week?: no, I usually do not exercise this much Have you been given information to help with the following?: no: Hazards in your house that might hurt you? and no: Keeping track of your medications? How often do you have trouble taking medicines the way you have been told to take them?: sometimes I take medicine as prescribed How confident are you that you can control & manage most of your health problems?: somewhat confident What is your race?: or origin or descent Mini Mental State Exam (MMSE) Orientation What is the (year) (season) (date) (day) (month)?: year, season, date, day and month Where are we (state) (county) (town or city) (hospital) (floor)?: state, county, town or city, hospital/clinic and floor Score Score: 10 Activity of Daily Living Bathing - sponge bath, tub bath or shower: receives no assistance (gets in/out by self, if usual bathing means Dressing - getting clothes from closets & drawers, including inner/outer garments & fasteners.: gets clothes & gets completely dressed without help Toileting - going to the 'toilet room' for urine/bowel elimination & cleaning self/arranging clothes: goes to toilet room, cleans self, arranges clothes without help Transfer: moves in & out of bed and chair without help (may use support object) Continence: controls urination/bowel movements completely by self Feeding: feeds self without help Total Score: 0 Information obtained from: patient Using telephone: independent Traveling: independent Shopping: independent Preparing meals: independent Housework: independent Taking medicine: independent Managing money: independent PHQ-9 Over the last 2 weeks, how often have you been bothered by any of the following problems? 1. Little interest or pleasure in doing things: nearly every day 2. Feeling down, depressed, or hopeless: several days 3. Trouble falling or staying asleep, or sleeping too much: nearly every day 4. Feeling tired or having little energy: nearly every day 5. Poor appetite or overeating: nearly every day 6. Feeling bad about yourself - or that you are a failure or have let yourself or your family down: not at all 7. Trouble concentrating on things, such as reading the newspaper or watching television: more than half the days 8. Moving or speaking so slowly that other people could have noticed. Or the opposite - being so fidgety or restless that you have been moving around a lot more than usual: more than half the days 9. Thoughts that you would be better off or of hurting yourself in some way: not at all Total score: 17 Depression Screening Interpretation: Positive Depression Screening Follow-up: Existing condition and Community Mental Health Worker F/U Depression Screening Done: Yes 34435 - PHQ-9 Billing: Yes Source: Developed by Drs. Jose Juan Bethea, Kait Flores, Daryl Jolly and colleagues, with an educational nancy from [employer]. Review of Systems Const Denies chills and Denies fever(s) ENT Denies epistaxis and Denies nasal discharge Card Denies chest pain Resp Denies chest congestion, Denies cough and Denies hemoptysis GI Denies diarrhea and Denies nausea Skin/Breast Denies rash Neuro Reports no additional complaints Psych Reports no additional complaints Endo Reports no additional complaints Physical Exam Vital Signs: Last Vital Signs Pulse 82 09/24/23 14:35 BP 126/72 09/24/23 14:35 Pulse Ox 98 09/24/23 14:35 Oxygen Delivery Method Room Air 09/24/23 14:35 BMI result Body Mass Index 35.5 Const General: cooperative, comfortable and no acute distress Orientation/consciousness: patient oriented x3 HEENT Head: Yes normocephalic Eyes General: appearance normal, both eyes and all related structures Neck Other: Supple Neck: Yes supple Resp Effort & Inspection: normal respiratory effort, no cough and no stridor Cardio Rhythm: regular rhythm Heart sounds: S1 normal heart sound present and S2 normal heart sound present Skin General skin exam: turgor normal Neuro Other: Motor sensory intact fine and tremor noticed both side outstretched General: patient oriented x3, tone normal and moves all extremities Extrem Other: No lower extremity swelling. Right lower extremity: no edema Left lower extremity: no edema Psych Other: Normal effect, speech clear Assessment & Plan Assessment & Plan (1) Medicare annual wellness visit, subsequent: Code(s): Z00.00 - Encounter for general adult medical examination without abnormal findings (2) Recurrent falls while walking: Code(s): R29.6 - Repeated falls (3) Tremor of both hands: Code(s): R25.1 - Tremor, unspecified (4) Lumbar pain: Code(s): M54.50 - Low back pain, unspecified Plan Patient back pain I have ordered x-ray for the patient She lives 1 hour away from here, she will look into the provider she want to see for her back At time she tells me that pain radiates to left hip There is no bowel or bladder issue Patient has also fallen twice in 1 year and she has fine hand tremors both sides I feel that she needs to be evaluated by Neurology Orders: Orders XR lumbar spine 2-3V Today M54.50 - Low back pain, unspecified Referrals Neurology Referral R25.1 - Tremor, unspecified, R29.6 - Repeated falls Medications: Refilled cyclobenzaprine 5 mg PO ONCE 90 days PRN 90 tabs 0RF muscle spasm Quality Reporting (2019) Depression/Bipolar (159/160/161/177) PHQ-9: Total score: 17 Coding Level of Care Code Medicare Subsequent (G0439) Est Pt Level 3 (12736) Diagnoses Medicare annual wellness visit, subsequent Z00.00 Recurrent falls while walking R29.6 Tremor of both hands R25.1 Lumbar pain M54.50 CPT Codes Advance Care Planning - Time spent: 1-15 minutes, on File ([id number]) Advance Care Planning Forms completed: DEENA Time spent: 1-15 minutes, on File
== END 2023-09-24 15:07 | disposition home or self-care (01) ==
PROVIDERS: PCP Internal Medicine; Visit Provider Internal Medicine
DX: Z00.00 Encounter for general adult medical examination without abnormal findings (principal); R29.6 Repeated falls; R25.1 Tremor, unspecified; M54.50 Low back pain, unspecified
CPT/HCPCS: 1123F; 99213; G0439

== ENCOUNTER 2023-09-26 14:20 | Outpatient (REF) | payer MEDICARE, MEDICAID, SELFPAY ==
--- NOTE | ~2023-09-26 | XR_ITS ---
EXAMINATION: XR LUMBOSACRAL SPINE CLINICAL INFORMATION: Low back pain unspecified. COMPARISON: 02/14/2017. TECHNIQUE: Three views of the lumbosacral spine. FINDINGS: Five nonrib-bearing lumbar-type vertebral bodies. Mild hypertrophic change in the bilateral sacroiliac joints. Small pelvic calcifications are likely vascular. Mild degenerative changes on limited images of the lower thoracic spine. Straightening of the normal lumbar lordosis. Facet arthritis in the lower lumbar spine. Mild multilevel lumbar spondylosis with hypertrophic change, most notable at L3-L4 and L4-L5. XR/XR lumbar spine 2-3V IMPRESSION: Mild multilevel lumbar spondylosis, most notable at L3-L4 and L4-L5.
== END 2023-09-26 14:21 | disposition home or self-care (01) ==
LOC: HO.XRAY 14:20
PROVIDERS: PCP Internal Medicine; Visit Provider Internal Medicine
DX: M54.50 Low back pain, unspecified (principal)
CPT/HCPCS: 72100

== ENCOUNTER 2023-12-17 10:49 | Outpatient (AMB) | payer MEDICARE, MEDICAID, SELFPAY ==
--- NOTE | 2023-12-17 11:02 | MHC.PC.OV ---
Intake Visit Reasons: 3 month follow up Allergies No Known Allergies Allergy (Verified 12/17/23 11:03) Medication List - Last Reconciled 12/17/23 by Pavan Glass MD acetaminophen (Tylenol Extra Strength) 1,000 mg PO Q6H PRN albuterol sulfate 90 mcg/actuation 1 puff inhalation Q4-6H PRN cyclobenzaprine 5 mg PO ONCE PRN 90 days Tobacco use date assessed: 12/17/23 Dental Screening Dental Screen Date: 12/17/23 Did you have a dental visit in the last 12 months?: Yes Did you have a dental problem in the last 6 months where you did not have access to dental care?: No Was dental information given to patient?: Patient has dentist HPI 3 month follow up HPI Details Patient is 43 year old female suffers from LBP chronic requesting ref to Chiropractor Patient is taking flexeril with some releaf of back spasms as needed pain is non radiating [facility] Medical History Back pain GERD (gastroesophageal reflux disease) Migraine Asthma History of ovarian cyst Paresthesia of hand, bilateral Plantar wart of right foot Major depression, recurrent Vitamin D deficiency Myofascial pain Cervicalgia Obesity due to excess calories Foot pain, bilateral Shoulder pain, right Arthrosis Viral syndrome Surgical History History of esophagogastroduodenoscopy (EGD) History of loop electrical excision procedure (LEEP) History of wisdom tooth extraction History of tubal ligation Family History Father HTN (hypertension) Depression Mother Depression Maternal Grandmother No problems noted. Maternal Grandfather No problems noted. Paternal Grandfather No problems noted. Paternal Grandmother No problems noted. Sister No problems noted. Sister No problems noted. Daughter No problems noted. Daughter No problems noted. Daughter No problems noted. Other Mental health disorder Social History Housing: Apartment Alcohol intake: never Patient Tobacco Use Status: Never used Tobacco e-Cigarette/Vaping Use: Never Used Second Hand Smoke Exposure: No Current occupational status: disabled Current occupation: right handed/ Cognitive needs: No Hearing needs: No Vision needs: Yes Female Reproductive History Menstrual Age of Menarche: 12 Questionnaire Thrive Questionnaire Date Thrive assessed: 10/11/22 AUDIT C Alcohol Use Questionnaire (AUDIT-C) 1. How often do you have a drink containing alcohol?: Never 3. How often do you have six or more drinks on one occasion?: Never Total Score: 0 Score Reviewed/Action Taken: Yes YASIR-7 AMB Questionnaire YASIR-7 Date YASIR - 7 assessed: 10/11/22 Source: Developed by Drs. Jose Juan Bethea, Kait Flores, Daryl Jolly and colleagues, with an educational nancy from [employer]. Review of Systems Const Denies chills and Denies fever(s) ENT Denies epistaxis and Denies nasal discharge Card Denies chest pain Resp Denies chest congestion, Denies cough and Denies hemoptysis GI Denies diarrhea and Denies nausea Skin/Breast Denies rash Neuro Reports no additional complaints Psych Reports no additional complaints Endo Reports no additional complaints Physical exam (Primary Care) Tobacco/Smoking Status: Tobacco use Status Tobacco use date assessed 12/17/23 12/17/23 11:03 Patient Tobacco Use Status Never used Tobacco 12/17/23 11:03 e-Cigarette/Vaping Use Never Used 12/17/23 11:03 Thrive Assessment: Date of Thrive Assessment Date Thrive assessed 10/11/22 12/17/23 11:03 Telehealth Telehealth Telehealth Platform: [facility] Location of provider rendering services: practice address Location of patient: address on file Patient Identification confirmed using: Name, : Yes Telehealth method: voice only Patient verbally consented to treatment: Yes Patient verbally consented to billing insurance company: Yes Patient informed of any privacy concerns related to visit: Yes Minutes spent on Phone/Video with Pt.: 12 Assessment and Plan Assessment & Plan (1) Lumbar pain: Code(s): M54.50 - Low back pain, unspecified Plan Patient is 43 year old female suffers from LBP chronic requesting ref to Chiropractor Patient is taking flexeril with some releaf of back spasms as needed pain is non radiating Orders: Referrals Chiropractic Referral M54.50 - Low back pain, unspecified Medications: New albuterol sulfate 90 mcg/actuation 1 puff inhalation Q4-6H PRN 8.5 grams 2RF Shortness Of Breath Or Wheezing Coding Level of Care Code Tele Est Pt Level 3 (54957) Diagnoses Lumbar pain M54.50
== END 2023-12-17 12:17 | disposition home or self-care (01) ==
LOC: HO.HMGC 10:49
PROVIDERS: PCP Internal Medicine; Visit Provider Internal Medicine
DX: M54.50 Low back pain, unspecified (principal)
CPT/HCPCS: 99442

== ENCOUNTER 2024-01-30 14:16 | Outpatient (AMB) | payer MEDICARE, MEDICAID, SELFPAY ==
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
[2024-01-30 14:28] VITALS: BP 124/72; PULSE 90; O2SAT 98; BMI 34.5
== END 2024-01-30 16:10 | disposition home or self-care (01) ==
PROVIDERS: PCP Internal Medicine; Visit Provider Nurse Practitioner Family
DX: R25.1 Tremor, unspecified (principal); R26.9 Unspecified abnormalities of gait and mobility; H53.2 Diplopia; H57.10 Ocular pain, unspecified eye; G47.9 Sleep disorder, unspecified; R06.83 Snoring
CPT/HCPCS: 99204

== ENCOUNTER → 2024-01-30 14:16 | Outpatient (BNVA) | payer MEDICARE, MEDICAID, SELFPAY | PROVIDERS: PCP Internal Medicine; Visit Provider Nurse Practitioner Family | DX: R25.1 Tremor, unspecified (principal); R26.9 Unspecified abnormalities of gait and mobility; R06.83 Snoring; H53.2 Diplopia; H57.10 Ocular pain, unspecified eye; G47.9 Sleep disorder, unspecified | CPT/HCPCS: 99202 ==

== ENCOUNTER 2024-02-03 15:41 | Outpatient (REF) | payer MEDICARE, MEDICAID, SELFPAY ==
[2024-02-03 16:02] LABS: MANUAL DIFF FLAG NO
[2024-02-03 16:28] LABS: Basophils Percent Auto 0.3 % (0-2); Eosinophils Percent Auto 0.5 % (0-4); Hematocrit 40.2 % (37.0-47.0); Hemoglobin 12.8 g/dl (12.0-16.0); Imm Gran Abs Auto 0.01 X10*3/uL (0.00-0.03); Imm Gran Pct Auto 0.2 % (0.0-0.4); Lymphocytes Absolute Auto 1.7 X10*3/uL (1.2-4.9); Lymphocytes Percent Auto 26.6 % (20-40); Mean Corpuscular HGB Conc 31.8 g/dl (31.0-35.0); Mean Corpuscular Hemoglobin 26.3 pg (27.0-33.0); Mean Corpuscular Volume 82.7 fL (80.0-98.0); Mean Platelet Volume 9.3 fL (9.4-12.3); Monocytes Absolute Auto 0.3 X10*3/uL (0.1-1.2); Neutrophils Absolute Auto 4.3 x10*3/uL (2.0-8.3); Neutrophils Percent Auto 67.4 % (45-73); Platelet Count 423 X10*3/uL (160-400); Red Blood Count 4.86 X10*6/uL (4.20-5.50); Red Cell Distribution Width 15.5 % (11.0-16.0); White Blood Count 6.4 X10*3/uL (4.8-10.8)
[2024-02-03 16:41] LABS: Estimated Average Glucose 105 mg/dL; Hemoglobin A1c % 5.3 % (<6.0)
[2024-02-03 17:06] LABS: Rheumatoid Factor < 13.0 IU/mL (<15.0)
[2024-02-03 17:07] LABS: Alanine Aminotransferase 12 U/L (0-31); Albumin Level 4.2 g/dL (3.5-5.0); Alkaline Phosphatase 73 U/L (39-117); Anion Gap 15 (12-20); Aspartate Amino Transferase 13 U/L (5-31); Bilirubin Total 0.3 mg/dL (0.0-1.0); Blood Urea Nitrogen 11 mg/dL (9-16); Calcium 10.1 mg/dL (8.4-10.2); Carbon Dioxide 26 mmol/L (22-29); Chloride 103 mmol/L (96-108); Estimated Glomerular Filt Rate > 60; Glucose Random 114 mg/dL (60-115); Iron 23 mcg/dL (30-160); Percent Iron Saturation 8 % (15-50); Potassium 3.8 mmol/L (3.3-5.1); Sodium 140 mmol/L (135-145); Total Iron Binding Capacity 288 mcg/dL (228-428); Total Protein 7.7 g/dL (6.5-8.0); Unsaturated Iron Binding 265 ug/dL
[2024-02-03 17:22] LABS: Ferritin 22 ng/mL (10-250); TSH reflex Free T4 0.47 uIU/mL (0.32-4.0)
[2024-02-03 17:25] LABS: Erythrocyte Sedimentation Rate 11 MM/HR (0-20)
[2024-02-03 17:37] LABS: Folate 7.9 ng/mL (> or = 4.0); Vitamin B12 626 pg/mL (200-900)
[2024-02-04 15:42] LABS: Ceruloplasmin 30 mg/dL (14-48)
[2024-02-04 18:53] LABS: CRP High Sensitivity >20.0 mg/L
[2024-02-07 05:54] LABS: Methylmalonic Acid 173 nmol/L (55-335)
[2024-02-08 16:13] LABS: Vitamin D 25-OH, D2 <4 ng/mL; Vitamin D 25-OH, D3 26 ng/mL; Vitamin D 25-OH, Total 26 ng/mL (30-100)
[2024-02-09 14:13] LABS: Anti Nuclear Antibody Screen NEGATIVE (NEGATIVE)
[2024-02-09 18:19] LABS: Acetylcholine Receptor Binding <0.30 nmol/L
[2024-02-09 20:03] LABS: Acetylcholine Recept. Blocking <15 (<15)
[2024-02-12 14:54] LABS: Acetylcholine Recep Modulating 23
== END 2024-02-03 15:42 | disposition home or self-care (01) ==
LOC: HO.LAB 15:41
PROVIDERS: PCP Internal Medicine; Visit Provider Nurse Practitioner Family
DX: R25.1 Tremor, unspecified (principal); H53.2 Diplopia; H57.10 Ocular pain, unspecified eye; D64.9 Anemia, unspecified; E55.9 Vitamin D deficiency, unspecified; G47.9 Sleep disorder, unspecified; R06.83 Snoring; R25.2 Cramp and spasm
CPT/HCPCS: 36415; 80053; 82306; 82390; 82550; 82607; 82728; 82746; 83036; 83090; 83540; 83921; 84443; 85025; 85652; 86038; 86041; 86042; 86043; 86141; 86366; 86431

== ENCOUNTER 2024-02-23 09:32 | Outpatient (REF) | payer MEDICARE, MEDICAID, SELFPAY ==
--- NOTE | ~2024-02-23 | MR_ITS ---
EXAMINATION: MR BRAIN WITHOUT AND WITH CONTRAST MR ORBITS WITHOUT AND WITH CONTRAST CLINICAL INFORMATION: Migraine headaches with diplopia COMPARISON: None. TECHNIQUE: Multiplanar, multisequence MRI of the brain and orbits was obtained before and after the intravenous administration of 7.5 mL of Gadavist. FINDINGS: Normal appearance of the globes and lacrimal glands. No pre- or post septal inflammation. No intraorbital mass. Normal bulk and signal intensity of the extraocular muscles. Significantly limited assessment for T2 signal abnormality and pathologic enhancement of the optic nerve apparatus due to motion artifact however no gross abnormality is seen. Normal opacification of the cavernous sinuses. No acute infarct. No acute intracranial hemorrhage or extra-axial fluid collection. The ventricles and sulci are normal in size and configuration without significant volume loss or hydrocephalus. No parenchymal signal abnormality. No mass lesion, mass effect, or herniation pattern. Prominent retrocerebellar CSF space eccentric to the left may reflect dang cisterna magna versus arachnoid cyst. Normal intracranial arterial and dural venous sinus flow voids. Polypoid mucosal disease in the maxillary sinus alveolar recesses. No mastoid effusion. The craniocervical junction is intact. Decreased T1 marrow signal within the cervical spinal column. MR/MR orbits face neck wo/w con IMPRESSION: 1. Significantly limited assessment for T2 signal abnormality and pathologic enhancement of the optic nerve apparatus due to motion artifact however no gross abnormality is seen. 2. Unremarkable MRI of the brain. 3. Decreased T1 marrow signal within the cervical spinal column. Findings may reflect red marrow reconversion as can be seen in the setting of anemia or other marrow infiltrative process and can be correlated with CBC. Electronically signed by: Ruthie Millard MD 03/08/2024 03:52 PM EDT
--- NOTE | ~2024-02-23 | MR_ITS ---
EXAMINATION: MR BRAIN WITHOUT AND WITH CONTRAST MR ORBITS WITHOUT AND WITH CONTRAST CLINICAL INFORMATION: Migraine headaches with diplopia COMPARISON: None. TECHNIQUE: Multiplanar, multisequence MRI of the brain and orbits was obtained before and after the intravenous administration of 7.5 mL of Gadavist. FINDINGS: Normal appearance of the globes and lacrimal glands. No pre- or post septal inflammation. No intraorbital mass. Normal bulk and signal intensity of the extraocular muscles. Significantly limited assessment for T2 signal abnormality and pathologic enhancement of the optic nerve apparatus due to motion artifact however no gross abnormality is seen. Normal opacification of the cavernous sinuses. No acute infarct. No acute intracranial hemorrhage or extra-axial fluid collection. The ventricles and sulci are normal in size and configuration without significant volume loss or hydrocephalus. No parenchymal signal abnormality. No mass lesion, mass effect, or herniation pattern. Prominent retrocerebellar CSF space eccentric to the left may reflect dang cisterna magna versus arachnoid cyst. Normal intracranial arterial and dural venous sinus flow voids. Polypoid mucosal disease in the maxillary sinus alveolar recesses. No mastoid effusion. The craniocervical junction is intact. Decreased T1 marrow signal within the cervical spinal column. MR/MR head/brain wo/w con IMPRESSION: 1. Significantly limited assessment for T2 signal abnormality and pathologic enhancement of the optic nerve apparatus due to motion artifact however no gross abnormality is seen. 2. Unremarkable MRI of the brain. 3. Decreased T1 marrow signal within the cervical spinal column. Findings may reflect red marrow reconversion as can be seen in the setting of anemia or other marrow infiltrative process and can be correlated with CBC. Electronically signed by: Ruthie Millard MD 03/08/2024 03:54 PM EDT
[2024-02-23] MEDS: gadobutroL 7.5 ML VIAL IVPUSH (10:59)
== END 2024-02-23 09:33 | disposition home or self-care (01) ==
LOC: HO.MRI 09:32
PROVIDERS: PCP Internal Medicine; Visit Provider Nurse Practitioner Family
DX: H02.89 Other specified disorders of eyelid (principal); R25.1 Tremor, unspecified; H53.2 Diplopia; E55.9 Vitamin D deficiency, unspecified; R25.2 Cramp and spasm; H57.10 Ocular pain, unspecified eye
CPT/HCPCS: 70543; 70553; A9585

== ENCOUNTER → 2024-04-14 11:21 | Outpatient (REF) | payer MEDICARE, MEDICAID, SELFPAY ==
--- NOTE | ~2024-04-14 | MR_ITS ---
EXAMINATION: MR CERVICAL SPINE WITHOUT AND WITH CONTRAST CLINICAL INFORMATION: Tremor COMPARISON: None available. TECHNIQUE: MRI of the cervical spine was obtained using routine sequences with and without contrast. Intravenous contrast: Gadavist 7.5 mL. FINDINGS: The imaged posterior fossa is unremarkable. Straightening of the normal cervical lordosis. No listhesis. No acute bone marrow abnormality or suspicious enhancement. The vertebral body heights are preserved. Multilevel disc desiccation with moderate disc height loss at C5-6. The visualized spinal cord is normal in caliber. No abnormal cord signal or enhancement. C2-3: Bilateral facet arthrosis. No significant spinal canal or neural foraminal narrowing. C3-4: Bilateral facet arthrosis. No significant spinal canal or neural foraminal narrowing. C4-5: No significant spinal canal or neural foraminal narrowing. C5-6: Disc osteophyte complex, bilateral uncovertebral hypertrophy, and bilateral facet arthrosis. No significant spinal canal or neural foraminal narrowing. C6-7: Endplate spurring. No significant spinal canal or neural foraminal narrowing. C7-T1: No significant spinal canal or neural foraminal narrowing. The paravertebral soft tissues are unremarkable. The imaged lung apices are clear. MR/MR cervical spine wo/w con IMPRESSION: 1. No abnormal cord signal or enhancement. 2. Mild multilevel cervical spondylosis without significant spinal canal or neural foraminal narrowing. Electronically signed by: Toya Miller MD 06/07/2024 07:20 PM KEVIN
[2024-04-14] MEDS: gadobutroL 7.5 ML VIAL IVPUSH (12:34)
== END ==
LOC: HO.SL 11:21
PROVIDERS: PCP Internal Medicine; Visit Provider Nurse Practitioner Family
DX: R06.83 Snoring (principal); R53.83 Other fatigue; G47.9 Sleep disorder, unspecified; R25.2 Cramp and spasm; R25.1 Tremor, unspecified; H53.2 Diplopia; H57.10 Ocular pain, unspecified eye
CPT/HCPCS: 72156; 95806

== ENCOUNTER 2024-05-14 15:14 | Outpatient (AMB) | payer MEDICARE, MEDICAID, SELFPAY ==
[2024-05-14 15:16] VITALS: BP 126/74; PULSE 100; O2SAT 98; BMI 35.2
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
== END 2024-05-14 15:45 | disposition home or self-care (01) ==
LOC: HO.HMCC 15:15
PROVIDERS: PCP Internal Medicine; Visit Provider Internal Medicine
DX: M54.12 Radiculopathy, cervical region (principal)

== ENCOUNTER → 2024-05-14 15:14 | Outpatient (BNVA) | payer MEDICARE, MEDICAID, SELFPAY | PROVIDERS: PCP Internal Medicine; Visit Provider Internal Medicine | DX: M54.12 Radiculopathy, cervical region (principal) | CPT/HCPCS: 96127; 99212 ==

== ENCOUNTER 2024-07-15 07:42 | Outpatient (AMB) | payer MEDICARE, MEDICAID, SELFPAY ==
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
[2024-07-15 07:43] VITALS: BMI 35.5
== END 2024-07-15 13:22 | disposition home or self-care (01) ==
PROVIDERS: PCP Internal Medicine; Visit Provider Nurse Practitioner Family
DX: R25.1 Tremor, unspecified (principal); R26.9 Unspecified abnormalities of gait and mobility; H53.2 Diplopia; H57.10 Ocular pain, unspecified eye; G43.109 Migraine with aura, not intractable, without status migrainosus; E55.9 Vitamin D deficiency, unspecified
CPT/HCPCS: 99214; G2211